=== PATIENT | male | born 1965 | race Caucasian/White ===

== ENCOUNTER 2017-11-09 13:03 | Emergency (ER) | payer BC ==
[2017-11-09 13:21] VITALS: BP 140/87
--- NOTE | 2017-11-09 13:23 | UC ---
Back Pain HPI - HPI Summary HPI Summary: Pt presents with left sided low back pain since 11/06. He tells me that [place] - fell backwards and his back landed on a tree stump. Had immediate pain, but subsided within the hour. Did not have much pain the day after, but noticed the area was swollen. Yesterday he developed pain and noticed spasms into his left buttocks and leg. He has been taking ibuprofen with mild relief. Denies numbness, tingling, saddle anesthesia, dysuria, hematuria, or loss of bowel/bladder control. - History of Current Complaint Chief Complaint: UCBackPain Stated Complaint: BACK INJURY Time Seen by Provider: 11/09/17 13:23 Hx Obtained From: Patient Onset/Duration: Sudden Onset Timing: Constant Severity Initially: Moderate Severity Currently: Moderate Pain Intensity: 7 Pain Scale Used: 0-10 Numeric Aggravating Factor(s): Movement, Lifting Alleviating Factor(s): Rest, Position - Allergies/Home Medications Allergies/Adverse Reactions: Allergies Allergy/AdvReac Type Severity Reaction Status Date / Time No Known Allergies Allergy Verified 11/09/17 13:21 Home Medications: Home Medications Fexofenadine/Pseudoephedrine [Poly-D 24 Hour Tablet] 1 tab PO DAILY 11/09/17 [History Confirmed 11/09/17] PMH/Surg Hx/FS Hx/Imm Hx Previously Healthy: Yes - Surgical History Surgical History: None - Family History Known Family History: Positive: None - Social History Occupation: Employed Full-time Lives: With Family Alcohol Use: Daily Alcohol Amount: one drink daily Substance Use Type: None Smoking Status (MU): Never Smoked Tobacco Review of Systems Constitutional: Negative Skin: Negative Respiratory: Negative Cardiovascular: Negative Gastrointestinal: Negative Genitourinary: Negative Neurovascular: Negative Musculoskeletal: Other: - Pain low back Neurological: Negative Psychological: Negative All Other Systems Reviewed And Are Negative: Yes Physical Exam - Summary Physical Exam Summary: GENERAL: NAD. WDWN. No pain distress. SKIN: No rashes, sores, ulcers, masses, lesions. NECK: Supple. FROM. Nontender. No lymphadenopathy. CHEST: CTAB. No r/r/w. No accessory muscle use. Breathing comfortably and in no distress. CV: RRR. Without m/r/g. Pulses intact. Brisk cap refill. MSK: TTP over left lumbar paraspinal muscles. No pain with flexion and extension of spine. Positive SLR on left. Strength 5/5 B/L LEs including dorsiflexion and plantar flexion. FROM B/L LEs. No edema. No CVA tenderness NEURO: Alert. CN II-XII grossly intact. Sensations intact B/L LEs L3-S1. PSYCH: Age appropriate behavior. Triage Information Reviewed: Yes Vital Signs: Initial Vital Signs Temp 98.3 F 11/09/17 13:17 Pulse 68 11/09/17 13:17 Resp 18 11/09/17 13:17 BP 140/87 11/09/17 13:17 Pulse Ox 100 11/09/17 13:17 Back Pain Course/Dx - Course Course Of Treatment: XR: IMPRESSION: Degenerative changes of the lumbar spine without radiographically apparent acute abnormality. UA trace glucose and 1+ bilirubin. Suspect muscle contusion. Advised to continue with ibuprofen. Will add flexeril. - Differential Dx/Diagnosis Provider Diagnoses: Lumbar muscle spasm. Contusion Discharge - Discharge Plan Condition: Stable Disposition: HOME Prescriptions: Cyclobenzaprine TAB* [Flexeril 10 MG TAB*] 10 mg PO BID PRN #10 tab PRN Reason: Pain Patient Education Materials: Contusion in Adults (ED), Muscle Spasm (ED) Referrals: Alok Lewis MD [Primary Care Provider] - Additional Instructions: If you develop a fever, shortness of breath, chest pain, new or worsening symptoms - please call your PCP or go to the ED. Your blood pressure was high at todays visit. Please see your primary provider within 4 weeks for recheck and re-evaluation.
[2017-11-09] MEDS ORDERED: Ketorolac INJ* 30 MG/ML 1 ML VIAL IM ONE (13:33)
--- NOTE | 2017-11-09 14:46 | RAD ---
INDICATION: Left lower back pain x5 days since a fall COMPARISON: None. TECHNIQUE: 5 views of the lumbar spine were obtained. FINDINGS: The vertebra are in normal alignment. No fracture is seen. Multilevel degenerative disc disease includes loss of disc height at the lower thoracic and lumbar spine most severely affecting L4/L5 where there is sclerotic change and marginal osteophyte formation. There is no severe spondylolisthesis or appearance of acute compression fracture. IMPRESSION: Degenerative changes of the lumbar spine without radiographically apparent acute abnormality.
== END 2017-11-09 14:30 | disposition home or self-care (01) ==
LOC: UCEAST 13:03
DX: S30.0XXA Contusion of lower back and pelvis, initial encounter (principal); W18.00XA Striking against unspecified object with subsequent fall, initial encounter; Y93.01 Activity, walking, marching and hiking; Y92.821 Forest as the place of occurrence of the external cause; M62.830 Muscle spasm of back
CPT/HCPCS: 72110; 81003; 96372; 99212; G0463; J1885

== ENCOUNTER 2018-04-29 17:23 | Emergency (ER) | payer BC ==
[2018-04-29] MEDS ORDERED: NS 0.9% 1000 ML* 1,000 ML IV ONE (17:42)
[2018-04-29] MEDS ORDERED: HYDROmorphone INJ* 1 MG/ML CARPUJECT SYRINGE IV ONE ×2 (18:02→18:39)
[2018-04-29] MEDS ORDERED: Ondansetron INJ* 2 MG/ML VIAL IV ONE (18:02)
[2018-04-29 18:03] LABS: ABS Basophils 0.1 10^3/ul (0-0.2); ABS Eosinophils 1.9 10^3/ul (0-0.6); ABS Lymphocytes 1.6 10^3/ul (1.0-4.8); ABS Monocytes 0.5 10^3/ul (0-0.8); ABS Neutrophils 6.9 10^3/ul (1.5-7.7); ABS Nucleated RBC 0 10^3/ul; Eosinophil % 17.4 % (0-6); Hematocrit 41 % (42-52); Hemoglobin 14.3 g/dl (14.0-18.0); Lymphocyte % 14.8 % (25-47); Mean Corpuscular HGB Conc 35 g/dl (31-36); Mean Corpuscular Hemoglobin 32 pg (27-31); Mean Corpuscular Volume 90 fL (80-94); Mean Platelet Volume 8.9 um3 (7.4-10.4); Nucleated Red Blood Cells % 0.1; Platelet Count 288 10^3/ul (150-450); Red Blood Count 4.52 10^6/ul (4.00-5.40); Red Cell Distribution Width 13 % (10.5-15); White Blood Count 11.1 10^3/ul (3.5-10.8)
--- NOTE | 2018-04-29 18:07 | ED ---
Headache - HPI Summary HPI Summary: This patient is a 52 year old M presenting to [facility] accompanied by his with a chief complaint of 10/10 VERDUGO since 1714. 174 code gray called. He notes it was sudden onset, occipital region bilaterally, and describes the pain as a burning, throbbing pressure that has radiated down his neck causing decreased ROM. Pt endorses dizziness. - History Of Current Complaint Chief Complaint: EDHeadache Stated Complaint: NECK PAIN/DIZZY Time Seen by Provider: 04/29/18 17:38 Hx Obtained From: Patient Onset/Duration: Sudden Onset, Started minutes ago, Still Present Initially Headache Was: "Worst Headache Ever", Initial Pain Scale(0-10)= - 10 Currently Pain Is: Current Pain Scale(0-10)= - 10 Timing: Constant Character: Throbbing, Pressure Location of Headache: Occipital Radiates to: neck Aggravating Factor: Nothing Allevating Factors: Nothing Associated Signs And Symptoms: Dizziness, Neck Pain, Neck Stiffness - Allergies/Home Medications Allergies/Adverse Reactions: Allergies Allergy/AdvReac Type Severity Reaction Status Date / Time No Known Allergies Allergy Verified 11/09/17 13:21 PMH/Surg Hx/FS Hx/Imm Hx Endocrine/Hematology History: Denies: Hx Sickle Cell Disease Cardiovascular History: Denies: Hx Pacemaker/ICD Respiratory History: Denies: Hx Lung Cancer GI History: Denies: Hx Ileostomy History: Denies: Hx Dialysis Musculoskeletal History: Denies: Hx Rheumatoid Arthritis, Hx Osteoporosis Sensory History: Denies: Hx Legally Blind, Hx Deafness Opthamlomology History: Denies: Hx Legally Blind EENT History: Denies: Hx Deafness Neurological History: Denies: Hx Developmental Delay Psychiatric History: Denies: Hx Autism, Hx Schizophrenia Infectious Disease History: No Infectious Disease History: Denies: Traveled Outside the [place] in Last 30 Days - Family History Known Family History: Negative: Other - CVA, aneurysm, brain bleeds - Social History Occupation: Employed Full-time Lives: With Family Alcohol Use: Daily Alcohol Amount: one drink daily Hx Substance Use: No Substance Use Type: Reports: None Smoking Status (MU): Never Smoked Tobacco Review of Systems Negative: Fever Positive: no symptoms reported Positive: Arthralgia, Myalgia - neck, Decreased ROM - neck Positive: Headache - worst headache ever All Other Systems Reviewed And Are Negative: Yes Physical Exam - Summary Physical Exam Summary: Appearance: The patient is well-nourished in severe distress and in severe pain. Skin: The skin is warm and dry and skin color reflects adequate perfusion. HEENT: The head is normocephalic and atraumatic. The pupils are equal and reactive. The conjunctivae are clear and without drainage. Nares are patent and without drainage. Mouth reveals moist mucous membranes and the throat is without erythema and exudate. The external ears are intact. The ear canals are patent and without drainage. The tympanic membranes are intact. Neck: The neck is supple with full range of motion and non-tender. There are no carotid bruits. There is no neck vein distension. No meningysmus. Respiratory: Chest is non-tender. Lungs are clear to auscultation and breath sounds are symmetrical and equal. Cardiovascular: Heart is regular rate and rhythm. There is no murmur or rub auscultated. There is no peripheral edema and pulses are symmetrical and equal. Abdomen: The abdomen is soft and non-tender. There are normal bowel sounds heard in all four quadrants and there is no organomegaly palpated. Musculoskeletal: There is no back tenderness noted. Extremities are non-tender with full range of motion. There is good capillary refill. There is no peripheral edema or calf tenderness elicited. No meningysmus. Neurological: Patient is alert and oriented to person, place and time. The patient has symmetrical motor strength in all four extremities. Cranial nerves are grossly intact. Deep tendon reflexes are symmetrical and equal in all four extremities. NIH = 0. Psychiatric: The patient has an appropriate affect and does not exhibit any anxiety or depression. Triage Information Reviewed: Yes Vital Signs On Initial Exam: Initial Vitals Temp Pulse Resp BP Pulse Ox 98.4 F 83 18 153/107 95 04/29/18 17:25 04/29/18 17:25 04/29/18 17:25 04/29/18 17:25 04/29/18 17:25 Vital Signs Reviewed: Yes - [place] Coma Scale Best Eye Response: 4 - Spontaneous Best Motor Response: 6 - Obeys Commands Best Verbal Response: 5 - Oriented Coma Scale Total: 15 Diagnostics - Vital Signs Vital Signs Temp Pulse Resp BP Pulse Ox 04/29/18 17:43 98.2 F 97 16 118/71 98 04/29/18 17:25 98.4 F 83 18 153/107 95 - Laboratory Result Diagrams: 04/29/18 17:57 04/29/18 17:57 Lab Statement: Any lab studies that have been ordered have been reviewed, and results considered in the medical decision making process. - Radiology CXR Xray Interpretation: No Acute Changes Radiology Interpretation Completed By: Radiologist - No radiographic evidence for acute cardiopulmonary abnormality on this portable chest x-ray. Dr. Hills has reviewed this report. - CT Brain CT Interpretation: Positive (See Comments) CT Interpretation Completed By: Radiologist - 1. Questionable amorphous dense material in the suprasellar cistern extending towards the right sylvian fissure is concerning for subarachnoid hemorrhage. 2. Asymmetric 1.7 cm hypoattenuating focus in the left thalamus could be an age indeterminant infarction or parenchymal mass. 3. Mild to moderate paranasal sinus mucosal disease. Superior characterization could be made with MRI/MRA or CTA. - EKG 1757 Cardiac Rate: NL - 97, borderline tachycardia EKG Rhythm: Sinus Rhythm ST Segment: Normal Ectopy: None EKG Interpretation: No STEMI, borderline tachycardia. Headache Course/Dx - Course Course Of Treatment: Mr. Scott presented with the sudden acute onset of occipital pain about 20 minutes prior to my evaluation. He describes the pain as a 10 and is obviously in significant distress. He denies visual changes or gait changes but was able to walk. On exam his NIH stroke scale was 0 but he was in obvious distress. He was tender to firm flexion of his neck but did not actually have meningeal signs. A maia peter was called immediately and he was sent for CT scan. He was found to have a subarachnoid hemorrhage and Dr. Key was contacted who recommended transfer emergently. Dr. Baez at [facility] accepted transfer and he will be transferred by helicopter. On arrival his blood pressure was elevated at 150/107 which normalized to 120/[address] scan. He was given Dilaudid twice for his severe headache which helped a bit. His blood pressure crept up again and he is now being given a dose of labetalol IV. We will continue to manage his blood pressure to try to keep the systolic below 140. - Diagnoses Provider Diagnoses: Subarachnoid hemorrhage During the Visit The Following Alert/Code Occurred: Maia Gray - [id number] - Physician Notifications Discussed Care Of Patient With: Christ Kye Time Discussed With Above Provider: 18:09 Instructed by Provider To: Other - recommends transfer - Critical Care Time Critical Care Time: 30-74 min Discharge - Sign-Out/Discharge Documenting (check all that apply): Patient Departure - transfer to neuro ICU at [facility] via helicopter. - Discharge Plan Condition: Critical Disposition: TRANS HIGHER LVL OF CARE FAC Referrals: Alok Lewis MD [Primary Care Provider] - - Billing Disposition and Condition Condition: CRITICAL Disposition: Trans Higher Lvl of Care Fac - Attestation Statements Document Initiated by Scribe: Yes Documenting Scribe: Derek Durand Provider For Whom Scribe is Documenting (Include Credential): Dr. David Hills MD Scribe Attestation: IDerek, scribed for Dr. David Hills MD on 04/29/18 at 1841. Scribe Documentation Reviewed: Yes Provider Attestation: The documentation as recorded by the scribeDerek accurately reflects the service I personally performed and the decisions made by me, Dr. David Hills MD Consult Consult: 1829 Dr. Pereyra from [facility] neuro ICU, accepts transfer.
[2018-04-29] MEDS ORDERED: HYDROmorphone INJ1* 1 MG/ML SYRINGE ONE (18:11)
--- NOTE | 2018-04-29 18:12 | RAD ---
INDICATION: Headache and dizziness COMPARISON: None. TECHNIQUE: Contiguous axial sections of the brain were obtained from the skull base to the vertex without contrast. Sagittal and coronal reformats were created and reviewed. FINDINGS: The ventricles, cisterns and sulci are within normal limits. There is questionable hyperdense material at the suprasellar cistern (axial image 10 of 32) with extension towards the right sylvian cistern. At the right thalamus (image 11) there is a 1.7 cm hypoattenuating focus asymmetric from the contralateral side. Otherwise the peter-white matter differentiation is adequately maintained and there is no sulcal effacement. No significant focal abnormality or mass effect is present. There is no evidence for intracranial hemorrhage. No significant focal osseous abnormality is present. There is mild mucosal thickening of the anterior ethmoid air cells and right frontal sinus where there are dependent frothy secretions. Remaining visualized paranasal sinuses are adequately aerated. The mastoid air cells are well aerated bilaterally. IMPRESSION: 1. Questionable amorphous dense material in the suprasellar cistern extending towards the right sylvian fissure is concerning for subarachnoid hemorrhage. 2. Asymmetric 1.7 cm hypoattenuating focus in the left thalamus could be an age indeterminant infarction or parenchymal mass. 3. Mild to moderate paranasal sinus mucosal disease. Superior characterization could be made with MRI/MRA or CTA. The possible extra-axial hemorrhage in the suprasellar cistern was discussed over the telephone with Dr. Hills at approximately 1755 hours and the possible left thalamus focal infarct was discussed at 1807 hours on April 29, 2018.
--- NOTE | 2018-04-29 18:15 | RAD ---
INDICATION: Headache COMPARISON: None. TECHNIQUE: Single AP portable view of the chest was obtained. FINDINGS: Image quality is compromised due to the relative inferiority of a portable chest x-ray. The heart and mediastinum exhibit normal size and contour. The lungs are grossly clear. There is no evidence of a large pleural effusion. Visualized bones are normal for the patient's age. IMPRESSION: No radiographic evidence for acute cardiopulmonary abnormality on this portable chest x-ray.
[2018-04-29 18:16] LABS: INR 0.9 (0.77-1.02)
[2018-04-29 18:24] LABS: EGFR Non-African American 68.1 (>60)
[2018-04-29] MEDS ORDERED: Labetalol IV* 5 MG/ML 20 ML VIAL IV PUSH ONE (18:44)
[2018-04-29 19:18] VITALS: BP 179/101
== END 2018-04-29 19:17 | disposition short-term general hospital (02) ==
LOC: ED 17:23
DX: I60.9 Nontraumatic subarachnoid hemorrhage, unspecified (principal); R51 Headache
CPT/HCPCS: 36415; 70450; 71045; 80053; 80061; 83605; 84484; 85025; 85610; 85730; 86850; 86900; 86901; 93005; 96374; 96375; 99285; J1170; J2405

== ENCOUNTER 2019-07-31 11:19 | Emergency (ER) | payer BC ==
[2019-07-31 12:07] VITALS: BP 127/84
--- NOTE | 2019-07-31 12:29 | ED ---
Bite Injury/Animal - HPI Summary HPI Summary: 53 year old male presents with cat bite on Saturday. [place] found a feral cat in his barn. He states he tried to catch the cat and it ended up biting him and ran away. He has been washing area with soap and water and peroxide. His tetanus is up-to-date. No fevers or spreading redness. He states he felt with primary today and they told him to come here for rabies vaccine. - History of Current Complaint Chief Complaint: UCBiteInjury Stated Complaint: BIT BY CAT NEEDS RABIES VACCINE Time Seen by Provider: 07/31/19 12:10 Pain Intensity: 0 - Allergies/Home Medications Allergies/Adverse Reactions: Allergies Allergy/AdvReac Type Severity Reaction Status Date / Time No Known Allergies Allergy Verified 07/31/19 11:58 Home Medications: Home Medications Acetaminophen [Acetaminophen Extra Strength] 1,000 mg PO ONCE 07/31/19 [History Confirmed 07/31/19] PMH/Surg Hx/FS Hx/Imm Hx Endocrine/Hematology History: Denies: Hx Diabetes, Hx Sickle Cell Disease Cardiovascular History: Denies: Hx Hypertension - on simvastatin, patient not sure why, Hx Pacemaker/ ICD Respiratory History: Denies: Hx Lung Cancer GI History: Denies: Hx Ileostomy History: Denies: Hx Dialysis, Hx Renal Disease Musculoskeletal History: Denies: Hx Rheumatoid Arthritis, Hx Osteoporosis Sensory History: Denies: Hx Legally Blind, Hx Deafness, Hx Hearing Aid Opthamlomology History: Denies: Hx Legally Blind Neurological History: Denies: Hx Developmental Delay Psychiatric History: Denies: Hx Autism, Hx Panic Disorder, Hx Schizophrenia - Cancer History Cancer Type, Location and Year: SKIN - Surgical History Surgery Procedure, Year, and Place: LEFT KNEE 1984 [place]. [place]ON[place] [facility] [place] REMOV[facility] 2017 Infectious Disease History: No Infectious Disease History: Denies: Traveled Outside the [place] in Last 30 Days - Family History Known Family History: Negative: Other - CVA, aneurysm, brain bleeds - Social History Alcohol Use: Daily Alcohol Amount: one drink daily Hx Substance Use: No Substance Use Type: Reports: None Smoking Status (MU): Never Smoked Tobacco Review of Systems Negative: Fever Negative: Chest Pain Negative: Shortness Of Breath Positive: Other - cat bite right hand All Other Systems Reviewed And Are Negative: Yes Physical Exam Triage Information Reviewed: Yes Vital Signs On Initial Exam: Initial Vitals Temp Pulse Resp BP Pulse Ox 99 F 70 16 127/84 99 07/31/19 11:59 07/31/19 11:59 07/31/19 11:59 07/31/19 11:59 07/31/19 11:59 Vital Signs Reviewed: Yes Appearance: Positive: Well-Appearing Skin: Positive: Warm, Dry, Other - puncture wound right hand with no evidence of cellulitis or dehiscence Head/Face: Positive: Normal Head/Face Inspection Eyes: Positive: Normal, Conjunctiva Clear ENT: Positive: Pharynx normal Respiratory/Lung Sounds: Positive: Clear to Auscultation, Breath Sounds Present Cardiovascular: Positive: Normal, RRR Musculoskeletal: Positive: Normal Neurological: Positive: Normal Psychiatric: Positive: Normal Diagnostics - Vital Signs Vital Signs Temp Pulse Resp BP Pulse Ox 07/31/19 11:59 99 F 70 16 127/84 99 - Laboratory Lab Statement: Any lab studies that have been ordered have been reviewed, and results considered in the medical decision making process. Bite Injury Course/Dx - Course Course Of Treatment: 53 year old male presents with cat bite on Saturday. [place] and found a feral cat in his barn. He states he tried to catch the cat and it ended up biting him and ran away. He has been washing area with soap and water and peroxide. His tetanus is up-to-date. No fevers or spreading redness. He states he felt with primary today and they told him to come here for rabies vaccine. On exam has 2 puncture wounds presents for him. No evidence of cellulitis. [facility] said to give HRIG and vaccine and follow up with [facility] for rest of treatment. patient understand and agrees with plan. - Diagnoses Provider Diagnosis: Cat bite, Rabies, need for prophylactic vaccination against Discharge ED - Sign-Out/Discharge Documenting (check all that apply): Patient Departure All imaging exams completed and their final reports reviewed: No Studies - Discharge Plan Condition: Good Disposition: HOME Patient Education Materials: Rabies Immune Globulin (By injection), Rabies Vaccine (ED) Referrals: Julio Reyna MD [Primary Care Provider] - Additional Instructions: follow up with [facility] for vaccines at day 3, 7, and 14 continue to keep puncture wound clean by washing with soap and water Return to UC if develop any new or worsening symptoms - Billing Disposition and Condition Condition: GOOD Disposition: Home
[2019-07-31] MEDS ORDERED: Rabies VIRUS VACCINE (RabAvert)* 2.5 UNITS VIAL IM ONE (12:30)
[2019-07-31] MEDS ORDERED: Rabies Immune Globulin/PF 1ML* 1 ML/300 UNITS VIAL IM ONE (12:30)
== END 2019-07-31 13:20 | disposition home or self-care (01) ==
LOC: UCEAST 11:19
DX: S61.451A Open bite of right hand, initial encounter (principal); W55.01XA Bitten by cat, initial encounter; Y92.71 Barn as the place of occurrence of the external cause; Z23 Encounter for immunization
CPT/HCPCS: 90375; 90471; 90675; 99212; G0463